=== PATIENT | female | born 1950 | race Caucasian/White ===

== ENCOUNTER 2017-05-28 08:18 | Emergency (ER) | payer MEDICARE, BC ==
[~2017-05-28] VITALS: Ht 165.1 cm; Wt 97.5 kg
[2017-05-28 08:23] VITALS: BP 131/61; PULSE 84; RESP 18; TEMP 97.7; O2SAT 96
[2017-05-28] MEDS ORDERED: MIRA25TA PO (08:31)
[2017-05-28] MEDS ORDERED: PRIL20TA2 PO (08:31)
[2017-05-28] MEDS ORDERED: KETOROLAC TROMETHAMINE 30 MG/ML (IVP) VIAL IV PUSH ONE (08:45)
[2017-05-28] MEDS ORDERED: SODIUM CHLORID 0.9% 500 ML INJ 500 ML IV ONE (08:45)
--- NOTE | 2017-05-28 08:47 | PD ---
HPI Chief Complaint: Flank/Kidney Pain Time Seen by Provider: 08:44 Travel History International Travel<30 days: No Contact w/Intl Traveler<30days: No Traveled to known affect area: No History of Present Illness HPI 66-year-old female patient presents to the ER today for 1 day history of right flank pains that started on its own, currently rated at a 10 out of 10. She denies any vomiting, but states she is only urinating just a tiny bit at a time. She denies any fevers or any other symptoms. She does not know any exacerbating alleviating factors. 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) Cholecystectomy: Yes Hysterectomy: Yes Tonsillectomy: Yes Social History Alcohol Use: Yes Tobacco Use: Yes Allergies-Medications (Allergen,Severity, Reaction): Coded Allergies: No Known Allergies (Verified Allergy, Unknown, 05/28/17) Reported Meds & Prescriptions Reported Meds & Active Scripts Active Reported Prilosec (Omeprazole Magnesium) 20 Mg Tab 20 Mg PO DAILY NEB Myrbetriq (Mirabegron) 25 Mg Tab 25 Mg PO DAILY Review of Systems Except as stated in HPI: all other systems reviewed are Neg Physical Exam Narrative GENERAL: Well-developed elderly white female patient currently in mild distress. Awake and oriented 3. SKIN: Focused skin assessment warm/dry. HEAD: Atraumatic. Normocephalic. EYES: Pupils equal and round. No scleral icterus. No injection or drainage. ENT: No nasal bleeding or discharge. Mucous membranes pink and moist. NECK: Trachea midline. No JVD. CARDIOVASCULAR: Regular rate and rhythm. No murmur appreciated. RESPIRATORY: No accessory muscle use. Clear to auscultation. Breath sounds equal bilaterally. GASTROINTESTINAL: Abdomen soft, mild right abdominal tenderness without guarding or rebound, nondistended. Hepatic and splenic margins not palpable. BACK: No CVA tenderness. No rash. No point tenderness on palpation of the spine. MUSCULOSKELETAL: No obvious deformities. No clubbing. No cyanosis. No edema. NEUROLOGICAL: Awake and alert. No obvious cranial nerve deficits. Motor grossly within normal limits. Normal speech. PSYCHIATRIC: Appropriate mood and affect; insight and judgment normal. Data Data Last Documented VS Vital Signs Date Time Temp Pulse Resp B/P (MAP) Pulse Ox O2 Delivery O2 Flow Rate FiO2 05/28/17 10:35 66 20 132/59 (83) 99 Room Air 05/28/17 08:23 97.7 Orders Orders Urinalysis - C+S If Indicated (05/28/17 08:25) Ketorolac Inj (Toradol Inj) (05/28/17 08:45) Sodium Chlorid 0.9% 500 Ml Inj (Ns 500 M (05/28/17 08:45) Ct Abd/Pel W/O Iv Contrast (05/28/17 08:44) Complete Blood Count With Diff (05/28/17 09:31) Comprehensive Metabolic Panel (05/28/17 09:31) Morphine Inj (Morphine Inj) (05/28/17 09:45) Ondansetron Inj (Zofran Inj) (05/28/17 09:45) Ed Discharge Order (05/28/17 10:49) Labs Laboratory Tests Test 05/28/17 08:00 05/28/17 09:00 Urine Collection Type CLEAN CATCH Urine Color YELLOW Urine Turbidity SLIGHT Urine pH 6.0 Urine Specific [place] 1.021 Urine Protein NEG mg/dL Urine Glucose (UA) NEG mg/dL Urine Ketones NEG mg/dL Urine Occult Blood SMALL Urine Nitrite NEG Urine Bilirubin NEG Urine Leukocyte Esterase NEG Urine RBC 4-9 /hpf Urine Squamous Epithelial Cells 0-5 /hpf Urine Amorphous Sediment FEW Microscopic Urinalysis Comment CULT NOT INDICATED Urine Collection Time 0820 White Blood Count 8.1 TH/MM3 Red Blood Count 4.68 MIL/MM3 Hemoglobin 14.0 GM/DL Hematocrit 41.2 % Mean Corpuscular Volume 88.1 FL Mean Corpuscular Hemoglobin 30.0 PG Mean Corpuscular Hemoglobin Concent 34.0 % Red Cell Distribution Width 13.1 % Platelet Count 333 TH/MM3 Mean Platelet Volume 9.4 FL Neutrophils (%) (Auto) 59.6 % Lymphocytes (%) (Auto) 30.7 % Monocytes (%) (Auto) 6.6 % Eosinophils (%) (Auto) 2.5 % Basophils (%) (Auto) 0.6 % Neutrophils # (Auto) 4.9 TH/MM3 Lymphocytes # (Auto) 2.5 TH/MM3 Monocytes # (Auto) 0.5 TH/MM3 Eosinophils # (Auto) 0.2 TH/MM3 Basophils # (Auto) 0.0 TH/MM3 CBC Comment DIFF FINAL Differential Comment Blood Urea Nitrogen 13 MG/DL Creatinine 0.69 MG/DL Random Glucose 90 MG/DL Total Protein 6.6 GM/DL Albumin 3.2 GM/DL Calcium Level 8.2 MG/DL Alkaline Phosphatase 96 U/L Aspartate Amino Transf (AST/SGOT) 19 U/L Alanine Aminotransferase (ALT/SGPT) 23 U/L Total Bilirubin 0.2 MG/DL Sodium Level 140 MEQ/L Potassium Level 4.0 MEQ/L Chloride Level 108 MEQ/L Carbon Dioxide Level 25.7 MEQ/L Anion Gap 6 MEQ/L Estimat Glomerular Filtration Rate 85 ML/MIN [facility] Medical Decision Making Medical Screen Exam Complete: Yes Emergency Medical Condition: Yes Medical Record Reviewed: Yes Interpretation(s) Laboratory Tests Test 05/28/17 08:00 05/28/17 09:00 Urine Occult Blood SMALL (NEG) Urine RBC 4-9 /hpf (0-3) Albumin 3.2 GM/DL (3.4-5.0) Calcium Level 8.2 MG/DL (8.5-10.1) Chloride Level 108 MEQ/L (98-107) Estimat Glomerular Filtration Rate 85 ML/MIN (>89) Last 24 hours Impressions Abdomen/Pelvis CT 05/28/17 0844 Signed Impressions: Service Date/Time: Sunday, May 28, 2017 09:04 - CONCLUSION: 1. No acute obstructive uropathy. 2. Right posterior diaphragmatic hernia containing only fat. 3. Uncomplicated sigmoid diverticulosis. 4. Multiple low-density lesions throughout the liver consistent with probable hepatic cysts. 5. 3.1 cm lower pole left renal cyst. 6. Degenerative changes and scoliosis of the lumbar spine. 7. Radiopaque density within the mid sigmoid colon which may represent a pill cam. 8. Sclerotic focus involving the left ischium which may represent a bone island. If there is pain associated with this location a bone scan may be helpful to rule out active bone turnover. Alirio De La Garza MD Differential Diagnosis Right flank pains: Muscular skeletal versus renal colic versus pyelonephritis/ UTI Narrative Course UA shows small amount blood but no signs of UTI. Lab work was otherwise unremarkable. CAT scan shows no signs of acute kidney stones, she does have a fat containing right diaphragmatic hernia, chronic lumbar spine degenerative changes, cyst within the liver, please see CAT scan readings for further information. She does not have any signs of acute processes. She was given pain medications in the ER for pain relief. At this point, vital signs are stable my plan would be to release her with symptomatic relief or pain and follow-up to primary care doctor. Return for any worsening in symptoms as necessary. The plan has been discussed with her and she states understanding. Diagnosis Primary Impression: Right flank pain Med/Other Pt SpecificInfo: Prescription(s) given Scripts Ibuprofen (Ibuprofen) 600 Mg Tab 600 MG PO Q6H Y for Pain/Inflammation, #20 TAB 0 Refills Prov: Marquez Song MD 05/28/17 Cyclobenzaprine (Flexeril) 10 Mg Tab 10 MG PO TID for Muscle Spasm, #20 TAB 0 Refills Prov: Marquez Song MD 05/28/17 Disposition: 01 DISCHARGE HOME Condition: Stable Marquez Song MD May 28, 2017 08:46
[2017-05-28 08:52] LABS: BILIRUBIN, URINE NEG (NEG); BLOOD, URINE SMALL (NEG); GLUCOSE,URINE NEG (NEG); KETONE, URINE NEG (NEG); NITRITE,URINE NEG (NEG); URINE LEUKOCYTE ESTERASE NEG (NEG)
[2017-05-28 08:53] LABS: URINE COLOR YELLOW (YELLW/STRAW)
[2017-05-28 09:00] LABS: AMORPHOUS SEDIMENT, URINE FEW; SQUAMOUS EPITHELIAL CELL URINE 0-5 /hpf (0-5)
--- NOTE | 2017-05-28 09:29 | RADRPT ---
EXAM DATE/TIME: 05/28/2017 09:04 CORRECTION Corrected on: May 28, 2017; [facility] COMPARISON: No previous studies available for comparison. INDICATIONS : Right flank pain. ORAL CONTRAST: No oral contrast ingested. RADIATION DOSE: 23.68 CTDIvol (mGy) MEDICAL HISTORY : Gastroesophageal reflux disease. Aortic valve tumor SURGICAL HISTORY : Appendectomy. Cholecystectomy.Hysterectomy. ENCOUNTER: Initial ACUITY: 1 day PAIN SCALE: 10/10 LOCATION: Right flank TECHNIQUE: Volumetric scanning of the abdomen and pelvis was performed. Using automated exposure control and ad justment of the mA and/or kV according to patient size, radiation dose was kept as low as reasonably achievable to obtain optimal diagnostic quality images. DICOM format image data is available electro nically for review and comparison. FINDINGS: LOWER LUNGS: There is a right posterior diaphragmatic hernia containing only fat. LIVER: There are multiple low-density lesions throughout the liver which are consistent with probable hepati c cysts. The largest is located within the right hepatic lobe inferiorly measuring 2 cm. There is no dilation of the biliary tree. Status post cholecystectomy. No calcified gallstones. SPLEEN: Normal size without lesion. PANCREAS: Within normal limits. KIDNEYS: Normal in size and shape. There is no mass, stone, or hydronephrosis. There is a 3.1 cm lower pole l eft renal cyst. ADRENAL GLANDS: Within normal limits. VASCULAR: There is no aortic aneurysm. BOWEL/MESENTERY: Uncomplicated sigmoid diverticulosis is noted. There is no acute diverticulitis. There is a radiopaqu e density within the mid sigmoid colon which may represent a pill cam. No bowel obstruction or ileus is noted. Status post appendectomy. ABDOMINAL WALL: Within normal limits. RETROPERITONEUM: There is no lymphadenopathy. BLADDER: No wall thickening or mass. REPRODUCTIVE: Within normal limits. INGUINAL: There is no lymphadenopathy or hernia. MUSCULOSKELETAL: Degenerative changes and scoliosis of the lumbar spine are noted. There is a sclerotic focus involvin g the left ischium which may represent a bone island. If there is pain associated with this location a bone scan may be helpful to rule out active bone turnover. CONCLUSION: 1. No acute obstructive uropathy. 2. Right posterior diaphragmatic hernia containing only fat. 3. Uncomplicated sigmoid diverticulosis. 4. Multiple low-density lesions throughout the liver consistent with probable hepatic cysts. 5. 3.1 cm lower pole left renal cyst. 6. Degenerative changes and scoliosis of the lumbar spine. 7. Radiopaque density within the mid sigmoid colon which may represent a pill cam. 8. Sclerotic focus involving the left ischium which may represent a bone island. If there is pain ass ociated with this location a bone scan may be helpful to rule out active bone turnover. Alirio De La Garza MD on May 28, 2017 at 9:19 Board Certified Radiologist. This report was verified electronically. Alirio De La Garza MD on May 28, 2017 at 10:11 Board Certified Radiologist. This report was verified electronically.
[2017-05-28] MEDS ORDERED: MORPHINE SULFATE 4 MG/ML INJ IV PUSH ONE (09:45)
[2017-05-28] MEDS ORDERED: ONDANSETRON HCL 4 MG/2 ML VIAL IVP ONE (09:45)
[2017-05-28 09:51] LABS: AUTOMATED NEUTROPHIL # 4.9 TH/MM3 (1.8-7.7); BASOPHIL % 0.6 % (0.0-2.0); EOSINOPHIL # 0.2 TH/MM3 (0-0.4); EOSINOPHIL % 2.5 % (0.0-4.0); HEMATOCRIT 41.2 % (35.0-46.0); LYMPH % 30.7 % (9.0-44.0); LYMPHOCYTE # 2.5 TH/MM3 (1.0-4.8); MEAN CELL VOLUME 88.1 FL (80.0-100.0); MEAN PLATELET VOLUME 9.4 FL (7.0-11.0); MONO % 6.6 % (0.0-8.0); MONOCYTE # 0.5 TH/MM3 (0-0.9); NEUT % 59.6 % (16.0-70.0); PLATELET COUNT 333 TH/MM3 (150-450); RED BLOOD COUNT 4.68 MIL/MM3 (4.00-5.30); RED CELL DISTRIBUTION WIDTH 13.1 % (11.6-17.2); WHITE BLOOD COUNT 8.1 TH/MM3 (4.0-11.0)
[2017-05-28 09:59] LABS: CHLORIDE 108 MEQ/L (98-107); SODIUM (NA) 140 MEQ/L (136-145)
[2017-05-28 10:02] LABS: CALCIUM 8.2 MG/DL (8.5-10.1)
[2017-05-28 10:03] LABS: ALBUMIN 3.2 GM/DL (3.4-5.0); BICARBONATE 25.7 MEQ/L (21.0-32.0); BLOOD UREA NITROGEN 13 MG/DL (7-18); GLUCOSE,RANDOM 90 MG/DL (74-106)
[2017-05-28 10:06] LABS: ALT (GPT) 23 U/L (10-53); AST (GOT) 19 U/L (15-37); CREATININE 0.69 MG/DL (0.50-1.00); GLOMERULAR FILTRATION RATE 85 ML/MIN (>89)
[2017-05-28 10:07] LABS: TOTAL BILIRUBIN ADULT 0.2 MG/DL (0.2-1.0); TOTAL PROTEIN 6.6 GM/DL (6.4-8.2)
[2017-05-28 10:08] LABS: ALKALINE PHOSPHATASE 96 U/L (45-117)
[2017-05-28 10:35] VITALS: BP 132/59; PULSE 66; RESP 20; O2SAT 99
[2017-05-28] MEDS ORDERED: IBUP-232 PO (11:01)
[2017-05-28] MEDS ORDERED: CYCL10TA PO (11:01)
== END 2017-05-28 11:10 | disposition home or self-care (01) ==
LOC: PHED 08:18
DX: R10.9 Unspecified abdominal pain (principal); K44.9 Diaphragmatic hernia without obstruction or gangrene; K57.30 Diverticulosis of large intestine without perforation or abscess without bleeding; K21.9 Gastro-esophageal reflux disease without esophagitis; N28.1 Cyst of kidney, acquired; Z72.0 Tobacco use
CPT/HCPCS: 74176; 80053; 81001; 85025; 96361; 96374; 96375; 99285; J1885; J2270; J2405; J7040